=== PATIENT | male | born 1995 | race Caucasian/White ===

== ENCOUNTER 2017-10-07 01:17 | Emergency (ER) | payer SELFPAY ==
[2017-10-07 02:57] LABS: Basophils % (Auto) 0.6 % (0.0-1.8); Eosinophils % (Auto) 0.8 % (0.0-4.3); Hematocrit 49.7 % (35.5-45.6); Mean Corpuscular HGB Conc 34 % (32-34); Mean Corpuscular Hemoglobin 32 pg (28-32); Mean Corpuscular Volume 95 fl (84-94); Platelet Count 271 K/mm3 (140-440); Red Blood Count 5.26 M/mm3 (3.65-5.03); Red Cell Distribution Width 12.9 % (13.2-15.2); White Blood Count 14.3 K/mm3 (4.5-11.0)
[2017-10-07 03:06] LABS: Anion Gap 21 mmol/L; BUN/Creatinine Ratio 19; Blood Urea Nitrogen 17 mg/dL (9-20); Calcium 10.4 mg/dL (8.4-10.2); Carbon Dioxide 24 mmol/L (22-30); Chloride 100.8 mmol/L (98-107); Glucose 113 mg/dL (75-100); Potassium 4.1 mmol/L (3.6-5.0); Sodium 142 mmol/L (137-145)
[2017-10-07] MEDS ORDERED: NACL 0.9% 1000 ML 1,000 ML IV ONE (07:03)
--- NOTE | 2017-10-07 07:14 | XRay Report ---
FINAL REPORT EXAM: XR CHEST ROUTINE 2V HISTORY: SULAIMAN TECHNIQUE: PA and lateral views of the chest were submitted. FINDINGS: Heart size and mediastinum appear normal. The lungs are clear. Pleural fluid is not seen. The bones and soft tissues appear well maintained. IMPRESSION: Normal chest.
--- NOTE | 2017-10-07 07:33 | Emergency Department Report ---
ED General Adult HPI - General Chief complaint: Chest Pain Stated complaint: CP Time Seen by Provider: 10/07/17 07:00 Source: patient Mode of arrival: Ambulatory Limitations: No Limitations - History of Present Illness Initial comments: The patient presents with his mother. His mother explains to me in Estonian that he has been having chest pain for more than 6 months. She states that he is abusing drugs. The patient will not tell me which drugs he is abusing. He is very vague about his chest pain and very vague about his drug use. He is not complaining of any active chest pain now. Apparently the pain was central and nonradiating. It has been intermittent and lasts a few minutes not associated with breathing nor exertion. The patient is not complaining of shortness of breath at this time. He is not coughing. He has not had a fever. His mother states that his oral intake has been poor lately. -: month(s) Location: chest Radiation: non-radiation Quality: other (would not describe) Consistency: intermittent (intermittent for months) Improves with: none Worsens with: none Associated Symptoms: denies other symptoms (not complaining of shortness of breath) - Related Data Home Medications Medication Instructions Recorded Confirmed Last Taken No Known Home Medications [No 10/07/17 10/07/17 Unknown Reported Home Medications] Allergies Allergy/AdvReac Type Severity Reaction Status Date / Time No Known Allergies Allergy Unverified 10/07/17 02:04 ED Review of Systems ROS: Stated complaint: CP Other details as noted in HPI Constitutional: denies: chills, fever Eyes: denies: eye pain, eye discharge, vision change ENT: denies: ear pain, throat pain Respiratory: denies: cough, shortness of breath, wheezing Cardiovascular: denies: chest pain, palpitations Endocrine: no symptoms reported Gastrointestinal: denies: abdominal pain, nausea, diarrhea Genitourinary: denies: urgency, dysuria Musculoskeletal: denies: back pain, joint swelling, arthralgia Skin: denies: rash, lesions Neurological: denies: headache, weakness, paresthesias Psychiatric: denies: anxiety, depression Hematological/Lymphatic: denies: easy bleeding, easy bruising ED Past Medical Hx - Past Medical History Previous Medical History?: No - Surgical History Past Surgical History?: No - Social History Smoking Status: Current Every Day Smoker Substance Use Type: Cocaine, Marijuana Other Social History: No recent traveling - Medications Home Medications: Home Medications Medication Instructions Recorded Confirmed Last Taken Type No Known Home Medications [No 10/07/17 10/07/17 Unknown History Reported Home Medications] ED Physical Exam - General Limitations: No Limitations General appearance: alert, in no apparent distress - Head Head exam: Present: atraumatic, normocephalic - Eye Eye exam: Present: normal appearance, PERRL, EOMI. Absent: scleral icterus - ENT ENT exam: Present: normal exam, mucous membranes moist - Neck Neck exam: Present: normal inspection. Absent: tenderness, meningismus - Respiratory Respiratory exam: Present: normal lung sounds bilaterally. Absent: respiratory distress - Cardiovascular Cardiovascular Exam: Present: regular rate, normal rhythm. Absent: systolic murmur, diastolic murmur, rubs, gallop - GI/Abdominal GI/Abdominal exam: Present: soft, normal bowel sounds. Absent: distended, tenderness, guarding, rebound, rigid - Rectal Rectal exam: Present: deferred - Extremities Exam Extremities exam: Present: normal inspection - Back Exam Back exam: Present: normal inspection - Neurological Exam Neurological exam: Present: alert, oriented X3, CN II-XII intact. Absent: motor sensory deficit - Psychiatric Psychiatric exam: Present: normal affect, normal mood - Skin Skin exam: Present: warm, dry, intact, normal color. Absent: rash ED Course Vital Signs 10/07/17 10/07/17 10/07/17 02:00 07:20 07:25 Temperature 98.1 F Pulse Rate 102 H Respiratory 13 Rate Blood Pressure 154/100 141/95 O2 Sat by Pulse 100 98 Oximetry 10/07/17 10/07/17 10/07/17 08:00 09:00 09:30 Temperature Pulse Rate 71 104 H 99 H Respiratory 13 12 Rate Blood Pressure 131/98 154/100 O2 Sat by Pulse 98 100 100 Oximetry - Reevaluation(s) Reevaluation #1: Patient was given IV fluids. His labs are reassuring. His chest pain is intermittent and chronic. EKG chest x-ray showed no indication for admission. His drug screen is pending. However, I can't imagine how it would change his disposition. He will be discharged and referred to outpatient management. 10/07/17 10:02 ED Medical Decision Making - Lab Data Result diagrams: 10/07/17 02:23 10/07/17 02:23 Laboratory Results - last 24 hr 10/07/17 10/07/17 10/07/17 02:23 02:23 04:50 WBC 14.3 H RBC 5.26 H Hgb 17.0 H Hct 49.7 H MCV 95 H MCH 32 MCHC 34 RDW 12.9 L Plt Count 271 Lymph % (Auto) 21.5 Gregory % (Auto) 6.3 Eos % (Auto) 0.8 Baso % (Auto) 0.6 Lymph # 3.1 Gregory # 0.9 H Eos # 0.1 Baso # 0.1 Seg Neutrophils % 70.8 H Seg Neutrophils # 10.1 H Sodium 142 Potassium 4.1 Chloride 100.8 Carbon Dioxide 24 Anion Gap 21 BUN 17 Creatinine 0.9 Estimated GFR > 60 BUN/Creatinine Ratio 19 Glucose 113 H Calcium 10.4 H Troponin T < 0.010 < 0.010 Laboratory Results - last 24 hr 10/07/17 10/07/17 10/07/17 02:23 02:23 04:50 WBC 14.3 H RBC 5.26 H Hgb 17.0 H Hct 49.7 H MCV 95 H MCH 32 MCHC 34 RDW 12.9 L Plt Count 271 Lymph % (Auto) 21.5 Gregory % (Auto) 6.3 Eos % (Auto) 0.8 Baso % (Auto) 0.6 Lymph # 3.1 Gregory # 0.9 H Eos # 0.1 Baso # 0.1 Seg Neutrophils % 70.8 H Seg Neutrophils # 10.1 H Sodium 142 Potassium 4.1 Chloride 100.8 Carbon Dioxide 24 Anion Gap 21 BUN 17 Creatinine 0.9 Estimated GFR > 60 BUN/Creatinine Ratio 19 Glucose 113 H Calcium 10.4 H Total Creatine Kinase CK-MB (CK-2) CK-MB (CK-2) Rel Index Troponin T < 0.010 < 0.010 10/07/17 10/07/17 08:09 08:09 WBC RBC Hgb Hct MCV MCH MCHC RDW Plt Count Lymph % (Auto) Gregory % (Auto) Eos % (Auto) Baso % (Auto) Lymph # Gregory # Eos # Baso # Seg Neutrophils % Seg Neutrophils # Sodium Potassium Chloride Carbon Dioxide Anion Gap BUN Creatinine Estimated GFR BUN/Creatinine Ratio Glucose Calcium Total Creatine Kinase 149 CK-MB (CK-2) 3.0 CK-MB (CK-2) Rel Index 2.0 Troponin T < 0.010 - EKG Data -: EKG Interpreted by Me EKG shows normal: sinus rhythm, axis, intervals, QRS complexes, ST-T waves Rate: normal - EKG Data Interpretation: no acute changes - Radiology Data Radiology results: report reviewed interpreted by me: Chest x-ray no acute process Critical care attestation.: If time is entered above; I have spent that time in minutes in the direct care of this critically ill patient, excluding procedure time. ED Disposition Clinical Impression: Atypical chest pain, Substance abuse, Dehydration Disposition: DC- TO HOME OR SELFCARE Is pt being admited?: No Does the pt Need Aspirin: No Condition: Stable Instructions: Chest Pain (ED), Polysubstance Abuse (ED) Additional Instructions: Return any acute change or problem. Follow-up with outside medical clinic/ [facility]. Referrals: PRIMARY CARE, [Primary Care Provider] - 3-5 Days [facility] [Outside] - 3-5 Days [facility] [Outside] - 3-5 Days [facility] [Provider Group] - 2-3 Days Time of Disposition: 10:05 Print Language: MONTSERRATIAN
[2017-10-07 10:01] LABS: Urine Drugs of Abuse Note Disclamer
[2017-10-07 10:04] VITALS: BP 138/87
== END 2017-10-07 10:28 | disposition home or self-care (01) ==
LOC: ED 01:17
DX: R07.89 Other chest pain (principal); E86.0 Dehydration; F17.200 Nicotine dependence, unspecified, uncomplicated; F12.10 Cannabis abuse, uncomplicated; F14.10 Cocaine abuse, uncomplicated
CPT/HCPCS: 36415; 71020; 80048; 80307; 82550; 82553; 84484; 85025; 93005; 93010; 96360; 99284; J7030